=== PATIENT | female | born 1995 | race Two or more races ===

== ENCOUNTER 2023-03-28 15:48 | Emergency (ER) | payer OTHER ==
[~2023-03-28] VITALS: Ht 165.1 cm; Wt 54.4 kg
[2023-03-28] MEDS ORDERED: PROZAC40 MG PO (16:41)
[2023-03-28] MEDS ORDERED: PROTONIX20 MG PO (16:41)
[2023-03-28] MEDS ORDERED: MACRODANTIN100 M1 PO (18:54)
== END 2023-03-28 19:01 | disposition home or self-care (01) ==
LOC: ER 15:48
DX: N39.0 Urinary tract infection, site not specified (principal); B96.29 Other Escherichia coli [E. coli] as the cause of diseases classified elsewhere; Z88.6 Allergy status to analgesic agent; Z88.8 Allergy status to other drugs, medicaments and biological substances